=== PATIENT | female | born 1950 | race Caucasian/White ===

== ENCOUNTER 2024-11-13 09:51 | Emergency (ER) | payer MEDICARE, OTHER ==
[2024-11-13] MEDS: Dexamethasone 4 MG/ML SDV IM ONE (10:52)
== END 2024-11-13 10:54 | disposition home or self-care (01) ==
LOC: VM.ED 09:51
DX: B34.9 Viral infection, unspecified (principal); Z88.2 Allergy status to sulfonamides; Z88.8 Allergy status to other drugs, medicaments and biological substances; Z79.899 Other long term (current) drug therapy
CPT/HCPCS: 71045; 96372; 99283; J1100

== ENCOUNTER 2025-05-24 06:48 | Day surgery (SDC) | payer MEDICARE, OTHER ==
[~2025-05-24 06:48] MED LIST: Dexamethasone/Neomycin/Polymyxin B Ophth Oint 3.5 GM Tube ONE; Lidocaine 1% 2 ML ONE; Moxifloxacin 0.5% Ophth Soln 3 ML Bottle EYELF ONE; Phenyleprhine/Ketorolac 4 ML Vial ONE; Povidone-Iodine 5% Sterile Ophth Soln 30 ML Bottle ONE
[2025-05-24] MEDS ORDERED: acetaZOLAMIDE 500 MG Cap.ER PO ONE (07:00)
[2025-05-24] MEDS: Cyclopentolate 1% Opth Soln 2 ML Bottle EYELF SCH (07:00)
[2025-05-24] MEDS: Moxifloxacin 0.5% Ophth Soln 3 ML Bottle EYELF ONE ×2 (07:25→08:48)
[2025-05-24] MEDS ORDERED: fentaNYL 100 MCG/2 ML SDV ONE (08:13)
[2025-05-24] MEDS ORDERED: Midazolam 1 MG/ML 2 ML SDV ONE (08:14)
[2025-05-24] MEDS: Povidone-Iodine 5% Sterile Ophth Soln 30 ML Bottle EYELF ONE (08:48)
[2025-05-24] MEDS: Phenyleprhine/Ketorolac 4 ML Vial IO ONE (08:51)
[2025-05-24] MEDS: Chondroitin Sulfate/Hyaluronate Sodium Ophth Inj 0.5 ML Syringe IOCULAR ONE (08:51)
[2025-05-24] MEDS: Lidocaine 1% PF 2 ML SDV INFILT ONE (08:51)
[2025-05-24] MEDS: Balanced Salt Solution Ophth Irrig 500 ML Bottle IOCULAR ONE (08:51)
[2025-05-24] MEDS: Dexamethasone/Neomycin/Polymyxin B Ophth Oint 3.5 GM Tube EYELF ONE (08:52)
== END 2025-05-24 09:30 | disposition home or self-care (01) ==
LOC: VM.SDS 06:48
PROVIDERS: ATTEND Ophthalmology
DX: H25.813 Combined forms of age-related cataract, bilateral (principal); I12.9 Hypertensive chronic kidney disease with stage 1 through stage 4 chronic kidney disease, or unspecified chronic kidney disease; N18.9 Chronic kidney disease, unspecified; E78.5 Hyperlipidemia, unspecified; Z88.8 Allergy status to other drugs, medicaments and biological substances; Z88.2 Allergy status to sulfonamides; Z79.899 Other long term (current) drug therapy
CPT/HCPCS: 00142; 99100; A9270-GY; J1097; J2003; J2250; J3010; J3490; V2632